=== PATIENT | male | born 1950 | race Caucasian/White ===

== ENCOUNTER → 2018-10-01 | Outpatient (CLI) | payer MEDICARE | LOC: M PLARAD 09:50 | DX: R91.1 Solitary pulmonary nodule (principal) | CPT/HCPCS: 78815 ==

== ENCOUNTER → 2020-04-26 | Outpatient (CLI) | payer MEDICARE ==
[~2020-04-26] MED LIST: AMLO1TAB24 PO; ATOR1TAB21 PO; INCR1INH; MONT10TA4 PO; SYMB16INH INH; diclofenac OR; nasonex; nexium OR
--- NOTE | 2020-04-26 16:17 | REP ---
MAXILLOFACIAL CT STUDY WITHOUT CONTRAST: HISTORY: Nasal polyp. Comparison is made with imaging from head CT study October 01, 2018. CT FINDINGS: There is pansinusitis with complete opacification of the sphenoid and ethmoid sinuses and frontal sinuses. There are a few tiny air bubbles in the right frontal sinus. There is nearly complete opacification of the maxillary sinuses bilaterally. The mastoid air cells are clear bilaterally. These polysinusitis changes are visible on PET/CT images as well essentially unchanged. No bony destructive lesion is seen. The ostiomeatal complexes are completely obscured by mucosal thickening. The nasal turbinate soft tissues show nodularity and some asymmetry consistent with multiple bilateral nasal polyps. The bony nasal septum is essentially in the midline. No intraorbital abnormality or intracranial abnormality is seen. IMPRESSION: Polysinusitis, extensive and essentially unchanged. Findings consistent with bilateral nasal polyps. Electronically Signed by Brady Gamez MD 04/26/2020 05:17 P
== END ==
LOC: M RAD 12:38
PROVIDERS: ATTEND Otolaryngology
DX: J33.9 Nasal polyp, unspecified (principal)

== ENCOUNTER → 2020-07-02 | Outpatient (CLI) | payer MEDICARE | LOC: M LABSMTC 09:56 | PROVIDERS: ATTEND Anesthesiology | DX: Z01.812 Encounter for preprocedural laboratory examination (principal); Z20.828 Contact with and (suspected) exposure to other viral communicable diseases | CPT/HCPCS: C9803; U0003 ==

== ENCOUNTER → 2021-08-25 | Outpatient (REF) | payer MEDICARE ==
[~2021-08-25] MED LIST changes: +MONT10TA10 PO; -MONT10TA4 PO
[2021-08-25 13:15] LABS: BASO # 0.1 10^3/uL (0.0-0.2); BASO % 0.8 % (0.0-1.0); EOS # 1.5 10^3/uL (0.0-0.5); EOS % 13.7 % (0.0-3.0); HEMATOCRIT 44.8 % (42.0-52.0); LYMPH # 1.8 10^3/uL (1.5-5.0); LYMPH % 16.1 % (24.0-44.0); MEAN CORPUSCULAR HEMOGLOBIN 29.2 pg (27.0-33.0); MEAN CORPUSCULAR HGB CONC 33.5 g/dl (32.0-36.5); MEAN CORPUSCULAR VOLUME 87.3 fl (80.0-96.0); MONO # 0.9 10^3/uL (0.0-0.8); MONO % 7.8 % (2.0-8.0); NEUTROPHILS # 6.7 10^3/uL (1.5-8.5); NEUTROPHILS % 61.3 % (36.0-66.0); PLATELET COUNT, AUTOMATED 448 10^3/uL (150-450); RED BLOOD COUNT 5.13 10^6/uL (4.30-6.10)
== END ==
LOC: M LAB REF 12:57
PROVIDERS: ATTEND Internal Medicine Pulmonary Disease
DX: J45.40 Moderate persistent asthma, uncomplicated (principal)

== ENCOUNTER → 2023-12-16 | Outpatient (CLI) | payer MEDICARE ==
[~2023-12-16] VITALS: Ht 170.2 cm; Wt 104.5 kg
[~2023-12-16] MED LIST changes: +ALBU8.5H; +AZEL1SPR3; +DUPI300P; +FLUTISP; +LIDOCAINE 1% MDV 20ML VIAL As Ordered ONE; +LIDOCAINE W/EPINEPHRINE 1% 20ML VIAL As Ordered ONE; +MIDAZOLAM INJ 2MG/2ML VIAL As Ordered ONE; -MONT10TA10 PO; +MONT10TA97 PO; +OMEP40CA5; +SALI0.6530 NARES; +SPIR12.9; +TRIA37.577; +VENTAER INH; +[UNRECOGNIZED DRUG - CODE] IM; +ceFAZolin 2 GM/D5W 50 ML IV BAG As Ordered ONE; +fentaNYL 100 MCG/2 ML INJECTION As Ordered ONE
[2023-12-16 13:40] VITALS: TEMP 97.8
[2023-12-16] MEDS: ceFAZolin SOD 2 GM in IV 1 EA IV ONE (14:19)
[2023-12-16 15:40] VITALS: BP 175/82; O2SAT 94
== END ==
LOC: M IRPRO 13:09
PROVIDERS: ATTEND Specialist
DX: N18.6 End stage renal disease (principal); C85.90 Non-Hodgkin lymphoma, unspecified, unspecified site
CPT/HCPCS: 36561; 99152; 99153; C1769; J0690; J2250; J3010

== ENCOUNTER → 2023-12-30 | Outpatient (CLI) | payer MEDICARE ==
[~2023-12-30] MED LIST changes: -LIDOCAINE 1% MDV 20ML VIAL As Ordered ONE; -LIDOCAINE W/EPINEPHRINE 1% 20ML VIAL As Ordered ONE; -MIDAZOLAM INJ 2MG/2ML VIAL As Ordered ONE; -SALI0.6530 NARES; +SODI88SP NARES; -ceFAZolin 2 GM/D5W 50 ML IV BAG As Ordered ONE; -fentaNYL 100 MCG/2 ML INJECTION As Ordered ONE
== END ==
LOC: M PLARAD 14:16
PROVIDERS: ATTEND Specialist
DX: C82.91 Follicular lymphoma, unspecified, lymph nodes of head, face, and neck (principal)
CPT/HCPCS: 78815; A9552

== ENCOUNTER → 2024-01-28 | Outpatient (CLI) | payer MEDICARE ==
[~2024-01-28] MED LIST changes: +LIDOCAINE 1% MDV 20ML VIAL As Ordered ONE; +ONDA8TAB8 PO; +PRED50TA PO; +PROC10TA5 PO
[2024-01-28 11:07] VITALS: TEMP 98.5
[2024-01-28 11:38] LABS: BASO # 0.1 10^3/uL (0.0-0.2); BASO % 1.4 % (0.0-1.0); EOS # 2.4 10^3/uL (0.0-0.5); HEMOGLOBIN 14.9 g/dl (13.5-17.5); LYMPH # 1.7 10^3/uL (1.5-5.0); LYMPH % 18.8 % (24.0-44.0); MEAN CORPUSCULAR HEMOGLOBIN 30.3 pg (27.0-33.0); MEAN CORPUSCULAR HGB CONC 34.7 g/dl (32.0-36.5); MEAN CORPUSCULAR VOLUME 87.6 fl (80.0-96.0); MONO # 0.7 10^3/uL (0.0-0.8); MONO % 7.9 % (2.0-8.0); NEUTROPHILS # 4.2 10^3/uL (1.5-8.5); NEUTROPHILS % 45.7 % (36.0-66.0); PLATELET COUNT, AUTOMATED 302 10^3/uL (150-450); RED BLOOD COUNT 4.91 10^6/uL (4.30-6.10); WHITE BLOOD COUNT 9.2 10^3/uL (4.0-10.0)
[2024-01-28 13:40] VITALS: BP 151/72; O2SAT 94
== END ==
LOC: M IRPRO 10:59
PROVIDERS: ATTEND Specialist
DX: C83.30 Diffuse large B-cell lymphoma, unspecified site (principal)

== ENCOUNTER → 2024-05-11 | Outpatient (CLI) | payer MEDICARE ==
[~2024-05-11] MED LIST changes: -LIDOCAINE 1% MDV 20ML VIAL As Ordered ONE; +ONDA-284 PO; -ONDA8TAB8 PO
== END ==
LOC: M PLARAD 09:57
PROVIDERS: ATTEND Internal Medicine Hematology & Oncology
DX: C82.98 Follicular lymphoma, unspecified, lymph nodes of multiple sites (principal)
CPT/HCPCS: 78815; A9552

== ENCOUNTER → 2024-06-17 | Outpatient (CLI) | payer MEDICARE ==
[~2024-06-17] MED LIST changes: +ALLO100T PO
== END ==
LOC: M ONCR 10:56
PROVIDERS: ATTEND General Practice
DX: C82.14 Follicular lymphoma grade II, lymph nodes of axilla and upper limb (principal); Z92.21 Personal history of antineoplastic chemotherapy; Z80.8 Family history of malignant neoplasm of other organs or systems; Z80.3 Family history of malignant neoplasm of breast; Z88.6 Allergy status to analgesic agent; Z88.8 Allergy status to other drugs, medicaments and biological substances; J30.89 Other allergic rhinitis; Z79.51 Long term (current) use of inhaled steroids; Z79.899 Other long term (current) drug therapy

== ENCOUNTER 2024-07-03 12:56 | Outpatient (RCR) | payer MEDICARE | END 2024-07-04 | LOC: M ONCR 12:56 | PROVIDERS: ATTEND General Practice | DX: Z51.0 Encounter for antineoplastic radiation therapy (principal); C82.14 Follicular lymphoma grade II, lymph nodes of axilla and upper limb ==

== ENCOUNTER → 2024-08-03 | Outpatient (RCR) | payer MEDICARE | LOC: M ONCR 07-07 11:11 | PROVIDERS: ATTEND General Practice | DX: Z51.0 Encounter for antineoplastic radiation therapy (principal); C82.14 Follicular lymphoma grade II, lymph nodes of axilla and upper limb ==

== ENCOUNTER 2024-08-05 09:43 | Outpatient (RCR) | payer MEDICARE | END 2024-09-03 | LOC: M ONCR 09:43 | PROVIDERS: ATTEND General Practice | DX: Z51.0 Encounter for antineoplastic radiation therapy (principal); C82.14 Follicular lymphoma grade II, lymph nodes of axilla and upper limb ==

== ENCOUNTER → 2024-11-06 | Outpatient (CLI) | payer MEDICARE | LOC: M ONCR 10:12 | PROVIDERS: ATTEND General Practice | DX: C82.14 Follicular lymphoma grade II, lymph nodes of axilla and upper limb (principal); Z79.51 Long term (current) use of inhaled steroids; Z79.899 Other long term (current) drug therapy; Z79.620 Long term (current) use of immunosuppressive biologic; Z88.6 Allergy status to analgesic agent; Z88.8 Allergy status to other drugs, medicaments and biological substances; J30.89 Other allergic rhinitis; Z92.21 Personal history of antineoplastic chemotherapy; Z92.3 Personal history of irradiation ==

== ENCOUNTER → 2025-05-06 | Outpatient (CLI) | payer MEDICARE ==
[~2025-05-06] MED LIST changes: -PRED50TA PO; +PRED50TA57 PO
== END ==
LOC: M ONCR 09:52
PROVIDERS: ATTEND General Practice
DX: C82 Follicular lymphoma (principal); Z92.21 Personal history of antineoplastic chemotherapy; Z92.3 Personal history of irradiation; Z91.09 Other allergy status, other than to drugs and biological substances; Z88.6 Allergy status to analgesic agent; Z88.8 Allergy status to other drugs, medicaments and biological substances; Z79.51 Long term (current) use of inhaled steroids; Z79.899 Other long term (current) drug therapy